=== PATIENT | female | born 1970 | race Two or more races ===

== ENCOUNTER 2024-05-27 18:50 | Emergency (ER) | payer MEDICAID, OTHER ==
[~2024-05-27] VITALS: Ht 154.9 cm; Wt 70.5 kg
[2024-05-27] MEDS: diphenhdrAMINE HCL 50 MG/1 ML VL IV ONE (19:23)
[2024-05-27] MEDS: diphenhdrAMINE HCL 50 MG/1 ML VL ONE (19:24)
[2024-05-27] MEDS: methylPREDNISolone SOD SUCC 125 MG/2 ML VL ONE ×2 (19:24)
[2024-05-27] MEDS: methylPREDNISolone SOD SUCC 125 MG/2 ML VL IV ONE (19:24)
[2024-05-27] MEDS: FAMOTIDINE (10MG/ML) 2ML VL IV ONE ×2 (19:24)
--- NOTE | 2024-05-27 19:30 | ED.PDOC ---
HPI Allergic reaction HPI Comments HPI: Poor Historian. 53-year-old female presents to emergency department for an allergic reaction. Onset of symptoms proximally 20 minutes prior to arrival. Patient is started feeling some itchiness in her throat and itchiness around her lips and some minimal facial cheeks swelling. Patient decided to come in for evaluation. Patient took some Benadryl 25 mg p.o. once prior to arrival. Patient has never been tested for allergies however she suspects she might be allergic to all of oil. Initial Vitals: Temp: 100.0 BP: 168/93 HR:119 RR: 20 O2 Sat.:95% Past Medcial History: Denies any Past Surgical History: Cholecystectomy REVIEW OF SYSTEMS: CONSTITUTIONAL: Denies acute: fever, diaphoresis, chills, generalized weakness. HEAD: Denies acute: headache, photophobia Eyes: Denies acute: Double vision, vision loss, eye pain, eye discharge. EARS: Denies acute: tinnitus, hearing loss, ear discharge, ear pain, THROAT: Denies acute: sore throat, swelling, difficulty swallowing , pain with swallowing, change in voice. NECK: Denies acute: neck pain, neck swelling, stiff neck. HEART: Denies acute : chest pain, palpitations, LUNGS: Denies acute: SOB, wheezing, cough, hemoptysis ABDOMEN: Denies acute: abdominal pain, Nausea, Vomiting, diarrhea, melena , hematemesis, hematochezia SKIN: Denies acute: rash, redness, lesions, itchiness. EXTREMITIES: Denies acute: calf pain, numbness, tingling, weakness, denies pain in extremity. Denies acute: Low back pain. Neuro: Denies acute: focal neurological deficit, motor or sensory focal neurological deficit, tremors, seizure like activity, confusion, dizziness, change in mental status, loss of bowel or bladder function, cauda equina like symptoms. : Denies acute: dysuria, hematuria, flank pain, increase in urinary frequency. PSYCH: Denies acute: hallucination, suicidal ideation, homicidal ideation. FEMALE: Denies acute: abnormal vaginal bleeding, foul odor, unusual discharge. PHYSICAL EXAM: General: no acute distress, awake and alert. Head: normocephalic, atraumatic. Neck: supple, trachea is midline, no swelling. Throat: Normal phonation. No erythema, no swelling, no obstruction, no drooling, no tongue swelling, no airway compromise. Eyes:, no erythema, no purulent discharge, no proptosis, no icterus. Heart: regular rate, regular rhythm, no significant murmur appreciated. Lungs: no apparent respiratory distress, Able to speak in full sentences. No wheezing, no rhonchi, no crackles. No stridors Clear to auscultation bilaterally. Abdomen: non tender to palpation, non distended, soft, no guarding, no rebound, + bowel sounds. Neuro: Awake, Alert, oriented to name, self, situation, follows commands GCS=15. Speech is normal. Skin: no petechia, no purpura, no cyanosis, non-pale, not jaundice. Lower extremities: --no - Pitting edema no deformity, no focal swelling, no calf TTP. Makes eye contact. moves all four extremities. Face: no apparent facial droop. Ambulating in the ED independently. Chief Complaint: Allergic Reaction Time Seen by MD: 19:02 Reviewed Notes: Nurses Notes, Medications, Allergies Allergies: Coded Allergies: Acetaminophen (Verified Allergy, Unknown, 05/27/24) Codeine (Verified Allergy, Unknown, 05/27/24) Hydrocodone (Verified Allergy, Unknown, 05/27/24) Iodine (Verified Allergy, Unknown, 05/27/24) [place] Oil (Verified Allergy, Unknown, 05/27/24) Uncoded Allergies: SULFA (Allergy, Unknown, 05/27/24) Home Meds Active Scripts Prednisone (Prednisone) 20 Mg Tab, 20 MG PO DAILY for 5 Days, #5 TAB Prov:DYANJANEY DO 05/27/24 Information Source: Patient Mode of Arrival: Ambulatory Was a procedure done? Was a procedure done?: No X-Ray, Labs, Meds, VS Vital Signs Date Time Temp Pulse Resp B/P (MAP) Pulse Ox O2 Delivery O2 Flow Rate FiO2 05/27/24 23:05 74 16 119/72 (88) 100 05/27/24 19:13 100.0 119 20 168/93 (118) 95 Lab Test 05/27/24 19:43 Range/Units White Blood Count 7.2 4.4-10.8 10^3/uL Red Blood Count 4.83 4.0-5.20 10^6/uL Hemoglobin 15.7 12.2-16.2 g/dL Hematocrit 45.0 36.0-46.0 % Mean Corpuscular Volume 93.2 80.0-100.0 fL Mean Corpuscular Hemoglobin 32.5 H 28.0-32.0 pg Mean Corpuscular Hemoglobin Concent 34.9 32.0-36.0 g/dL Red Cell Distribution Width 13.4 11.8-14.3 % Platelet Count 288 140-450 10^3/uL Mean Platelet Volume 8.1 6.9-10.8 fL Neutrophils (%) (Auto) 50.0 37.0-80.0 % Lymphocytes (%) (Auto) 37.8 10.0-50.0 % Monocytes (%) (Auto) 9.3 0.0-12.0 % Eosinophils (%) (Auto) 2.2 0.0-7.0 % Basophils (%) (Auto) 0.7 0.0-2.0 % Neutrophils # (Auto) 3.6 1.6-8.6 10 ^3/uL Lymphocytes # (Auto) 2.7 0.4-5.4 10 ^3/uL Monocytes # (Auto) 0.7 0-1.3 10 ^3/uL Eosinophils # (Auto) 0.2 0-0.8 10 ^3/uL Basophils # (Auto) 0 0-0.2 10 ^3/uL Nucleated Red Blood Cells 0.1 % Sodium Level 142 136-145 mmol/L Potassium Level 3.9 3.5-5.1 mmol/L Chloride Level 106 98-107 mmol/L Carbon Dioxide Level 29 20-31 mmol/L Anion Gap 7 5-15 Blood Urea Nitrogen 17 9-23 mg/dL Creatinine 0.83 0.550-1.02 mg/dL Glomerular Filtration Rate Calc 83 >90 mL/min BUN/Creatinine Ratio 20.5 H 10.0-20.0 Serum Glucose 106 74-106 mg/dL Calcium Level 10.4 8.7-10.4 mg/dL Total Bilirubin 0.5 0.2-1.0 mg/dL Aspartate Amino Transferase (AST) 31 13-40 U/L Alanine Aminotransferase (ALT) 53 H 7-40 U/L Alkaline Phosphatase 107 46-116 U/L Total Protein 7.2 5.7-8.2 g/dL Albumin 5.1 H 3.2-4.8 g/dL Current Medications Medications (Trade) Dose Ordered Sig/Shilpa Route Start Time Stop Time Status Last Admin Sodium Chloride 1,000 ml @ 1,000 mls/hr Q1H ONCE IV 05/27/24 19:15 05/27/24 20:14 DC 05/27/24 19:56 Diphenhydramine HCl (Benadryl Injection) 50 mg ONCE ONCE IV 05/27/24 19:30 05/27/24 19:31 DC 05/27/24 19:23 Famotidine (Pepcid Injection) 20 mg ONCE ONCE IV 05/27/24 19:30 05/27/24 19:31 DC 05/27/24 19:24 Methylprednisolone Sodium Succinate (Solu Medrol) 250 mg ONCE ONCE IV 05/27/24 19:30 05/27/24 19:31 DC 05/27/24 19:24 [place] [id number] Ph: [phone] DIAGNOSTIC IMAGING Diagnostic Imaging Report : [id number] Signed PATIENT: CINDY CONNORSIAACCT: [id number] UNIT: [id number] : 1970 LOC: ER ROOM / BED: / AGE / SEX: 53 / F ADM STATUS: REG ER SERVICE 02 ORDERING PHYSICIAN: JANEY ZAIDI DO PROCEDURE(s): CXRP - CHEST PORTABLE REASON: allergic rxn ORDER NUMBER(s): [id number], ACCESSION NUMBER(s): [id number] CHEST RADIOGRAPH Indication: allergic rxn Technique: Single frontal view of the chest was obtained COMPARISON: None FINDINGS: Lines and Tubes: None Lungs: Clear Pleura: No effusion. No pneumothorax. Cardiomediastinal contours: Unremarkable Bones: Unremarkable IMPRESSION: No acute disease. ATED BY: HOOD CHAVARRIA MD DICTATED DATE/TIME: 05/27/242035 SIGNED BY: HOOD CHAVARRIA MD SIGNED DATE/TIME: 05/27/242035 CC: Time of 1ST Reevaluation: 00:04 Reevaluation 1ST: Resolved Patient Education/Counseling: Diagnosis, Treatment Family Education/Counseling: No Family Present Comments Patient presented with the above HPI.-- ALLERGIC REACTION ---workup was initiated. patient was found with the above mentioned diagnosis. the following medications were ordered: BENADRYL X2, SOLU-MEDROL X3, FAMOTIDINE IM X2, SODIUM CHLORIDE the following tests were ordered: LABS, BBK, CXR Patient ED course and VS have been stabilized. Patient has been reassessed in the ED and remained in a stable condition. Pertinent incidental findings were discussed with the patient and/or family. Patient/family voices understanding and is agreeable with plan. Patient has been observed in the ED adequate length of time to insure improvement/stability. Escalation of care considered: Consideration of escalation to observation or admission Patient was DISCHARGED home in a stable condition. Patient already has an EpiPen in her purse lead she has not used yet. All the reports of any imaging studies that were ordered by myself were reviewed by myself. Departure 1 Departure Time of Disposition: 23:56 Impression: Primary Impression: Allergic reaction Disposition: 01 HOME / SELF CARE / HOMELESS Condition: Stable Additional Instructions: Additional discharge instructions: You MUST follow-up with your primary care/family doctor in 1 to 2 days. If you are unable to see your primary care/family doctor, please return to our emergency room for re-assessment and re-evaluation in 1 to 2 days. Return to the emergency room here in our facility or to the nearest ER [facility] if your symptoms change or worsen. CONSULTATIONS: you MUST Follow-up for consultation as soon as possible with: -cost estimating manager in 1-2 days. Please call for appointment. You MUST call the consultants office yourself to make an appointment. You may need to arrange that through your insurance and/or your primary/family doctor. If you are unable to see the supervisor home energy consultant in 1 to 2 days, you must return to our emergency room (or any other ER of your choice) for re-assessment and re- evaluation. Adequate fluid hydration. Take the following ehwe-yfi-uenovls medications daily for the next five days: Pepcid 20 mg one pill by mouth daily for next five days. Benadryl 25 mg one pill by mouth daily for next five days. You were also prescribed prednisone to take daily for the next five days. You already have your EpiPen. Below is a copy of your radiological report for follow up: [place] [id number] Ph: [phone] DIAGNOSTIC IMAGING Diagnostic Imaging Report : [id number] Signed PATIENT: CINDY CONNORS ACCT: [id number] UNIT: [id number] : 1970 LOC: ER ROOM / BED: / AGE / SEX: 53 / F ADM STATUS: REG ER SERVICE 02 ORDERING PHYSICIAN: JANEY ZAIDI DO PROCEDURE(s): CXRP - CHEST PORTABLE REASON: allergic rxn ORDER NUMBER(s): [id number], ACCESSION NUMBER(s): [id number] CHEST RADIOGRAPH Indication: allergic rxn Technique: Single frontal view of the chest was obtained COMPARISON: None FINDINGS: Lines and Tubes: None Lungs: Clear Pleura: No effusion. No pneumothorax. Cardiomediastinal contours: Unremarkable Bones: Unremarkable IMPRESSION: No acute disease. ATED BY: HOOD CHAVARRIA MD DICTATED DATE/TIME: 05/27/242035 SIGNED BY: HOOD CHAVARRIA MD SIGNED DATE/TIME: 05/27/242035 CC: e-Prescriptions Prednisone (Prednisone) 20 Mg Tab 20 MG PO DAILY for 5 Days, #5 TAB Prov: JANEY ZAIDI DO 05/27/24 Discharged With: Self Critical Care Note Critical Care Time?: Yes (45 min-critical care time only) Stability Stability form required: No Heart Score Heart Score: Heart Score Response (Comments) Value History N/A 0 EKG N/A 0 Age N/A 0 Risk Factors N/A 0 Troponin N/A 0 Total 0 I personally scribed for JANEY ZAIDI DO ([email or web address]) on 05/27/24 at 22:11. Electronically submitted by Shruthi Yu ([email or web address]). I personally scribed for JANEY ZAIDI DO ([email or web address]) on 05/27/24 at 22:13. Electronically submitted by Shruthi Yu ([email or web address]). JANEY ZAIDI DO May 27, 2024 19:30
[2024-05-27] MEDS: SODIUM CHLORIDE 0.9% 1,000 ML IV ONE (19:56)
[2024-05-27 19:57] LABS: Basophils # (auto) 0 10 ^3/uL (0-0.2); Basophils % (auto) 0.7 % (0.0-2.0); Eosinophils # (auto) 0.2 10 ^3/uL (0-0.8); Eosinophils % (auto) 2.2 % (0.0-7.0); Hemoglobin 15.7 g/dL (12.2-16.2); Lymphocytes # (auto) 2.7 10 ^3/uL (0.4-5.4); Lymphocytes % (auto) 37.8 % (10.0-50.0); Mean Corpuscular Hemoglobin 32.5 pg (28.0-32.0); Mean Corpuscular Hgb Conc. 34.9 g/dL (32.0-36.0); Mean Corpuscular Volume 93.2 fL (80.0-100.0); Monocytes # (auto) 0.7 10 ^3/uL (0-1.3); Monocytes % (auto) 9.3 % (0.0-12.0); Neutrophils # (auto) 3.6 10 ^3/uL (1.6-8.6); Nucleated Red Blood Cells % 0.1 %; Platelet Count (auto) 288 10^3/uL (140-450); Red Blood Cells 4.83 10^6/uL (4.0-5.20); Red Cell Distribution Width 13.4 % (11.8-14.3); White Blood Cell 7.2 10^3/uL (4.4-10.8)
[2024-05-27 20:19] LABS: Alkaline Phosphatase 107 U/L (46-116); Anion Gap 7 (5-15); Aspartate Aminotransferase 31 U/L (13-40); BUN/Creatinine Ratio 20.5 (10.0-20.0); Bilirubin, Total 0.5 mg/dL (0.2-1.0); Blood Urea Nitrogen 17 mg/dL (9-23); Carbon Dioxide 29 mmol/L (20-31); Chloride 106 mmol/L (98-107); Potassium 3.9 mmol/L (3.5-5.1); Sodium 142 mmol/L (136-145)
[2024-05-27 20:20] LABS: Total Protein 7.2 g/dL (5.7-8.2)
[2024-05-27 20:31] LABS: Alanine Aminotransferase 53 U/L (7-40); Albumin 5.1 g/dL (3.2-4.8); Calcium 10.4 mg/dL (8.7-10.4); Glucose 106 mg/dL (74-106)
--- NOTE | 2024-05-27 20:41 | DVH ---
CHEST RADIOGRAPH Indication: allergic rxn Technique: Single frontal view of the chest was obtained COMPARISON: None FINDINGS: Lines and Tubes: None Lungs: Clear Pleura: No effusion. No pneumothorax. Cardiomediastinal contours: Unremarkable Bones: Unremarkable IMPRESSION: No acute disease.
[2024-05-27 23:05] VITALS: BP 119/72; PULSE 74; RESP 16; O2SAT 100
[2024-05-27] MEDS ORDERED: PRED20TA2 PO (23:57)
== END 2024-05-28 00:33 | disposition home or self-care (01) ==
LOC: ER 18:58
DX: T78.40XA Allergy, unspecified, initial encounter (principal); Z90.49 Acquired absence of other specified parts of digestive tract; Z91.041 Radiographic dye allergy status; Z88.2 Allergy status to sulfonamides; Z88.5 Allergy status to narcotic agent; Z88.8 Allergy status to other drugs, medicaments and biological substances; Z79.52 Long term (current) use of systemic steroids; X58.XXXA Exposure to other specified factors, initial encounter
CPT/HCPCS: 36415; 71045; 80053; 85025; 86850; 86900; 86901; 96361; 96374; 96375; 99284; J1200; J2919; J3490; J7030

== ENCOUNTER 2024-07-04 19:09 | Emergency (ER) | payer MEDICAID ==
[~2024-07-04] VITALS: Ht 152.4 cm; Wt 74.8 kg
[~2024-07-04 19:09] MED LIST: PRED20TA2 PO
[2024-07-04 19:37] VITALS: PULSE 110; RESP 20; O2SAT 98
--- NOTE | 2024-07-04 19:38 | ED.PDOC ---
HPI Allergic reaction HPI Comments 53-year-old female came to emergency room due to allergic reaction. Patient states she was eating sushi earlier, which she started having throat pain and swelling, noted facial swelling, periorbital swelling and pruritus. Noted cough and shortness of breath. Patient states she episodes before use various foods. Chief Complaint: Allergic Reaction Time Seen by MD: 19:37 Reviewed Notes: Nurses Notes Allergies: Coded Allergies: Acetaminophen (Verified Allergy, Unknown, 05/27/24) Codeine (Verified Allergy, Unknown, 05/27/24) Hydrocodone (Verified Allergy, Unknown, 05/27/24) Iodine (Verified Allergy, Unknown, 05/27/24) [place] Oil (Verified Allergy, Unknown, 05/27/24) Uncoded Allergies: SULFA (Allergy, Unknown, 05/27/24) Home Meds Active Scripts Prednisone (Prednisone) 20 Mg Tab, 20 MG PO DAILY for 5 Days, #5 TAB Prov:JANEY ZAIDI 05/27/24 Information Source: Patient Mode of Arrival: Ambulatory Severity: Moderate Rash: None SOB: Moderate Difficulty swallowing: Moderate Pruritus: Moderate Timing: Minutes Duration: Since onset Prehospital treatment: None Location: Face, Throat, Tongue Exposed to: Food Developed: Difficult Swallowing, Facial Swelling, Pruritus, Rash, Shortness of Breath, Throat Swelliing Modyifying Factors: None Associated Sign and Symptoms: None Past Medical History PAST MEDICAL HISTORY: Denies Past Medical History (Other): History of allergies Surgical History: Denies all surgeries CARDIAC CATHETERIZATION TECHNICIAN History: Denies all CARDIAC CATHETERIZATION TECHNICIAN Hx Family History Family History: Reviewed,noncontributory to illness Social History Smoker: Non-Smoker Alcohol: Denies ETOH Use Drugs: Denies Drug Use Lives In: Home Constitutional: denies: chills, diaphoresis, fatigue, fever, malaise, sweats, weakness, others EENTM: reports: throat pain, throat swelling; denies: blurred vision, double vision, ear bleeding, ear discharge, ear drainage, ear pain, ear ringing, eye pain, eye redness, hearing loss, mouth pain, mouth swelling, nasal discharge, nose bleeding, nose congestion, nose pain, photophobia, tearing, voice changes, others Respiratory: reports: cough, SOB at rest, shortness of breath; denies: hemoptysis, orthopnea, SOB with excertion, stridor, wheezing, others Cardiovascular: denies: chest pain, dizzy spells, diaphoresis, Dyspnea on exertion, edema, irregular heart beat, left arm pain, lightheadedness, palpitations, PND, syncope, others Gastrointestinal: denies: abdomen distended, abdominal pain, blood streaked bowels, constipated, diarrhea, dysphagia, difficulty swallowing, hematemesis, melena, nausea, poor appetite, poor fluid intake, rectal bleeding, rectal pain, vomiting, others Genitourinary: denies: abnormal vagina bleeding, burning, dyspareunia, dysuria, flank pain, frequency, hematuria, incontinence, pain, , vagina discharge, urgency, others Neurological: denies: dizziness, fainting, headache, left sided numbness, left sided weakness, numbness, paresthesia, pre-existing deficit, right sided numbness, right sided weakness, seizure, speech problems, tingling, tremors, weakness, others Musculoskeletal: denies: back pain, gout, joint pain, joint swelling, muscle pain, muscle stiffness, neck pain, others Integumetry: denies: bruises, change in color, change in hair/nails, dryness, laceration, lesions, lumps, rash, wounds, others Allergic/Immunocompromised: denies: Difficulty Healing, Frequent Infections, Hives, Itching, others Hematologic/Lymphatic: denies: anemia, blood clots, easy bleeding, easy bruising, swollen glands, others Endocrine: denies: excessive hunger, excessive sweating, excessive thirst, excessive urination, flushing, intolerance to cold, intolerance to heat, unexplained weight gain, unexplained weight loss, others Psychiatric: denies: anxiety, bipolar disorder, depression, hopeless, panic disorder, schizophrenia, sleepless, suicidal, others Physical Exam General Appearance: No Apparent Distress, Normal HEENT: Normal ENT Inspection, Pharynx Normal, TMs Normal Neck: Full Range of Motion, Non-Tender, Normal, Normal Inspection Respiratory: Chest Non-Tender, Lungs Clear, No Accessory Muscle Use, No Respira tory Distress, Normal Breath Sounds Cardiovascular: No Edema, No JVD, No Murmur, No Gallop, Normal Peripheral Pulses, Regular Rate/Rhythm Breast Exam: Deferred Gastrointestinal: No Organomegaly, Non Tender, No Pulsatile Mass, Normal Bowel Sounds, Soft Genitalia: Deferred Pelvic: Deferred Rectal: Deferred Extremities: No calf tenderness, Normal capillary refill, Normal inspection, Normal range of motion, Non-tender, No pedal edema Musculoskeletal : Apperance: Normal Neurologic: Alert, first aid teacher II-XII nml as Tested, No Motor Deficits, Normal Affect, Normal Mood, No Sensory Deficits Cerebellar Function: Normal Reflexes: Normal Skin: Dry, Normal Color, Warm Lymphatic: No Adenopathy Was a procedure done? Was a procedure done?: No Differential diagnosis (all) Differential Diagnosis: Anaphylaxis, Angioedema, Urticaria X-Ray, Labs, Meds, VS Vital Signs Date Time Temp Pulse Resp B/P (MAP) Pulse Ox O2 Delivery O2 Flow Rate FiO2 07/04/24 19:37 110 20 98 Room Air* 0 21 07/04/24 19:37 110 20 148/86 (106) 98 07/04/24 19:16 20 98 Room Air* 0 21 07/04/24 19:16 99.6 110 20 148/86 (106) 98 Current Medications Medications (Trade) Dose Ordered Sig/Shilpa Route Start Time Stop Time Status Last Admin Methylprednisolone Sodium Succinate (Solu Medrol) 125 mg ONCE ONCE IV 07/04/24 19:30 07/04/24 19:31 DC 07/04/24 19:48 Famotidine (Pepcid Injection) 20 mg ONCE ONCE IV 07/04/24 19:30 07/04/24 19:31 DC 07/04/24 19:48 Diphenhydramine HCl (Benadryl Injection) 50 mg ONCE ONCE IV 07/04/24 19:30 07/04/24 19:31 DC 07/04/24 19:48 Sodium Chloride 1,000 ml @ 1,000 mls/hr Q1H ONCE IV 07/04/24 19:30 07/04/24 20:29 DC 07/04/24 19:48 Time of 1ST Reevaluation: 19:33 Reevaluation 1ST: Unchanged Patient Education/Counseling: Diagnosis, Treatment Family Education/Counseling: No Family Present Departure 1 Departure Time of Disposition: 22:24 (Patient presenting with allergic reaction. Patient reports feeling significantly better after seeing her medications. We will discharge patient home with outpatient follow up) Impression: Primary Impression: Allergic reaction Qualified Codes: T78.40XA - Allergy, unspecified, initial encounter Disposition: HOME / SELF CARE / HOMELESS Condition: Stable Additional Instructions: You had an allergic reaction. You received medications in the ER. You were prescribed steroids and an epinephrine pain. Please use as directed. You should follow up with your regular doctor within one week to ensure you are doing better. You may benefit from an appointment with an Dedicated Intermodal Truck Driver. If your symptoms worsen, or you have any other concerns then please return to the ER. e-Prescriptions Epinephrine (Anaphylaxis) (Auvi-Q) 0.1 Mg/0.1 Ml Inj 0.1 MG IJ O PRN for 1 Day, #1 INJ Prov: RAY LO MD 07/04/24 Prednisone (Prednisone) 20 Mg Tab 40 MG PO DAILY for 5 Days, #10 MG Prov: RAY LO MD 07/04/24 Discharged With: Self Critical Care Note Critical Care Time?: Yes (35 min-critical care time only) Critical care comment: Anaphylaxis Authorized and Performed by: Ray Lo MD Total critical care time: Approximately 38 minutes Due to a high probability of clinically significant, life threatening deterioration, the patient required my highest level of preparedness to intervene emergently and I personally spent this critical care time directly and personally managing the patient. This critical care time included obtaining a history; examining the patient; pulse oximetry; ordering and review of studies; arranging urgent treatment with development of a management plan; evaluation of patient's response to treatment; frequent reassessment; and, discussions with other providers. This critical care time was performed to assess and manage the high probability of imminent, life-threatening deterioration that could result in multi-organ failure. It was exclusive of separately billable procedures and treating other patients and teaching time. Please see my other sections and the rest of the note for further information on patient assessment and treatment. Stability Stability form required: No Heart Score Heart Score: Heart Score Response (Comments) Value History N/A 0 EKG N/A 0 Age N/A 0 Risk Factors N/A 0 Troponin N/A 0 Total 0 I personally scribed for RAY LO MD ([email or web address]) on 07/04/24 at 19:38. Electronically submitted by Collins Arredondo ([email or web address]). RAY LO MD Jul 04, 2024 19:38
[2024-07-04] MEDS: diphenhdrAMINE HCL 50 MG/1 ML VL IV ONE (19:48)
[2024-07-04] MEDS: SODIUM CHLORIDE 0.9% 1,000 ML IV ONE (19:48)
[2024-07-04] MEDS: methylPREDNISolone SOD SUCC 125 MG/2 ML VL IV ONE (19:48)
[2024-07-04] MEDS: FAMOTIDINE (10MG/ML) 2ML VL IV ONE (19:48)
[2024-07-04] MEDS ORDERED: PRED20TA2 PO (22:25)
[2024-07-04] MEDS ORDERED: EPIN0.1I11 IJ (22:25)
[2024-07-04 22:43] VITALS: BP 129/80; PULSE 85; RESP 18; TEMP 97.6; O2SAT 98
== END 2024-07-04 22:45 | disposition home or self-care (01) ==
LOC: ER 19:09
DX: T78.40XA Allergy, unspecified, initial encounter (principal); Z79.52 Long term (current) use of systemic steroids; Z91.041 Radiographic dye allergy status; Z88.8 Allergy status to other drugs, medicaments and biological substances; Z88.5 Allergy status to narcotic agent; Z88.1 Allergy status to other antibiotic agents; Z88.2 Allergy status to sulfonamides; X58.XXXA Exposure to other specified factors, initial encounter
CPT/HCPCS: 96361; 96374; 96375; 99284; J1200; J2919; J3490; J7030